=== PATIENT | male | born 1950 | race Two or more races ===

== ENCOUNTER 2023-09-22 04:09 | Inpatient (IN) | payer MEDICARE, OTHER ==
[2023-09-22] VITALS (32 sets, daily range): BP systolic 80–138; BP diastolic 44–69; TEMP 97.4–98.4; O2SAT 94–100
[~2023-09-22] VITALS: Ht 170.2 cm; Wt 64.4 kg
[~2023-09-22 04:09] MED LIST: ASPI81TA31 PO; METF-442 PO; METO100T14 PO; NIFE90TA PO; SIMV-46 PO
[2023-09-22] MEDS ORDERED: IV NORMAL SALINE 500 ML BAG IV ONE ×3 (04:30→05:30)
[2023-09-22] MEDS ORDERED: PANT20TA2 PO (04:36)
[2023-09-22] MEDS ORDERED: FOLI1TAB94 PO (04:36)
[2023-09-22] MEDS ORDERED: ATOR40TA PO (04:36)
[2023-09-22] MEDS ORDERED: APIX2.5T PO (04:36)
[2023-09-22] MEDS ORDERED: PRAM0.253 PO (04:36)
[2023-09-22] MEDS ORDERED: FLUD0.1T PO (04:36)
[2023-09-22] MEDS ORDERED: LEVO50TA8 PO (04:36)
[2023-09-22 04:47] LABS: AMMONIA 29 umol/L (11-32); CALCIUM 6.1 mg/dL (8.5-10.1); CARBON DIOXIDE 23 mmol/L (21-32); CHLORIDE 109 mmol/L (98-107); CREATININE 2.5 mg/dL (0.6-1.3); GLUCOSE 106 mg/dL (74-106); POTASSIUM 3.2 mmol/L (3.5-5.1); SODIUM SERUM 139 mmol/L (136-145); UREA NITROGEN, BLOOD 34 mg/dL (7-18)
[2023-09-22 04:52] LABS: ETHANOL < 3 MG/DL (0-10)
[2023-09-22 04:53] LABS: MAGNESIUM 1.3 mg/dL (1.8-2.4)
[2023-09-22 04:56] LABS: BASOPHILS % (AUTO) 0.9 % (0.0-2.0); EOSINOPHILS # (AUTO) 0.1 K/uL (0.0-0.7); EOSINOPHILS % (AUTO) 3.7 % (0.0-7.0); HEMATOCRIT 31.8 % (36.7-47.1); HEMOGLOBIN 10.2 g/dL (12.5-16.3); LYMPHOCYTES # (AUTO) 1.4 K/uL (0.8-4.8); LYMPHOCYTES % (AUTO) 35.4 % (20.5-51.5); MEAN CORPUSCULAR HEMOGLOBIN 30.2 uug (23.8-33.4); MEAN CORPUSCULAR HGB CONC 32 g/dL (32.5-36.3); MEAN CORPUSCULAR VOLUME 94.5 fL (73.0-96.2); MONOCYTES # (AUTO) 0.4 K/uL (0.1-1.30); MONOCYTES % (AUTO) 10.1 % (0.0-11.0); NEUTROPHILS % (AUTO) 49.9 % (38.5-71.5); PLATELET COUNT (AUTO) 123 K/uL (152-348); RED BLOOD CELL COUNT(AUTO) 3.36 MIL/uL (4.06-5.63); RED CELL DISTRIBUTION WIDTH 15.8 % (12.1-16.2); WHITE BLOOD COUNT (AUTO) 3.9 K/uL (3.6-10.2)
[2023-09-22 05:00] LABS: DIFFERENTIAL COMMENT 1
[2023-09-22 05:02] LABS: ACETAMINOPHEN 5.4 ug/mL (10-30); ALANINE AMINOTRANSFERASE 33 U/L (16-63); ALKALINE PHOSPHATASE 247 U/L (50-136); ASPARTATE AMINOTRANSFERASE 45 U/L (15-37); BILIRUBIN,DIRECT 0.2 mg/dL (0.0-0.2); BILIRUBIN,TOTAL 0.4 mg/dL (0.2-1.0); TOTAL PROTEIN, SERUM 4.3 g/dL (6.4-8.2)
[2023-09-22 05:05] LABS: ALBUMIN 1.4 g/dL (3.4-5.0); NT-PRO BNP > 3500 pg/mL (0-125)
[2023-09-22 05:06] LABS: PHOSPHOROUS 3.1 mg/dL (2.5-4.9)
[2023-09-22 05:07] LABS: THYROID STIMULATING HORMONE 17.268 mIU/mL (0.358-3.740)
[2023-09-22 05:37] LABS: ABG BASE EXCESS -5.9 mmol/L; ABG HCO3 21.3 mmol/L; ABG PCO2 48.8 mmHg (35.0-45.0); ABG PH 7.257 (7.350-7.450); ABG PO2 279.1 mmHg (75.0-100.0); ABG SITE LEFT RADIAL; ABG TOTAL HEMOGLOBIN 11.3 G/dL (13.5-18.0); COHb 0.3 % (0.5-1.5); MetHb 0.3 % (0.0-1.5); O2Hb 98.6 % (94.0-97.0)
[2023-09-22] MEDS ORDERED: levoFLOXacin 750MG/D5W 150 ML IV ONE (05:40)
[2023-09-22] MEDS ORDERED: levoFLOXacin 750 MG/D5W 150 ML PIGGYBACK IV ONE (05:45)
[2023-09-22] MEDS ORDERED: ASPIRIN 81 MG TAB.CHEW ONE (05:55)
[2023-09-22] MEDS ORDERED: ASPIRIN 81 MG TAB.CHEW PO ONE (06:00)
[2023-09-22] MEDS ORDERED: ONDANSETRON 4 MG/2 ML VIAL IV PRN (06:00)
[2023-09-22] MEDS ORDERED: CALCIUM GLUCONATE IV 1 GM in IV DEXTROSE 5% 50 ML IV ONE (06:45)
[2023-09-22] MEDS ORDERED: CALCIUM GLUCONATE 1 GM/10 ML VIAL IV ONE (06:48)
[2023-09-22] MEDS ORDERED: NOREPINEPHRINE BITARTRATE 4 MG/4 ML VIAL IV ONE (07:00)
[2023-09-22] MEDS ORDERED: NOREPINEPHRINE BITARTRATE 8 MG in IV NORMAL SALINE 242 ML IV PRN ×2 (07:00→07:15)
[2023-09-22] MEDS ORDERED: MAGNESIUM SULFATE/D5W 100 ML IV SCH ×2 (08:00→09:15)
[2023-09-22] MEDS: ASPIRIN 81 MG TAB.CHEW PO SCH (09:00)
[2023-09-22] MEDS ORDERED: FLUDROCORTISONE ACETATE 0.1 MG TABLET PO SCH (09:00)
[2023-09-22] MEDS: APIXABAN 2.5 MG TABLET PO SCH ×2 (09:00→21:00)
[2023-09-22] MEDS: LEVOTHYROXINE SODIUM 50 MCG TABLET PO SCH (10:26)
[2023-09-22] MEDS: FOLIC ACID 1 MG TABLET PO SCH (10:28)
[2023-09-22] MEDS: MAGNESIUM SULFATE/D5W 100 ML IV SCH ×2 (10:28→11:26)
[2023-09-22] MEDS: NOREPINEPHRINE BITARTRATE 8 MG in IV NORMAL SALINE 242 ML IV PRN ×2 (10:54→21:51)
[2023-09-22] MEDS: CEFEPIME HCL 1 G in IV DEXTROSE 5% 50 ML IV SCH (21:20)
[2023-09-22] MEDS: ATORVASTATIN 40 MG TABLET PO SCH (21:21)
[2023-09-22] MEDS: PRAMIPEXOLE 0.25 MG TABLET PO SCH (21:22)
[2023-09-22] MEDS: IV NORMAL SALINE 250 ML IV PRN (22:46)
[2023-09-23] VITALS (37 sets, daily range): BP systolic 89–121; BP diastolic 38–66; TEMP 98–99.1; O2SAT 95–100
[2023-09-23 05:03] LABS: BASOPHILS # (AUTO) 0.1 K/UL (0.0-0.2); EOSINOPHILS # (AUTO) 0.1 K/uL (0.0-0.7); EOSINOPHILS % (AUTO) 1.6 % (0.0-7.0); HEMATOCRIT 34.8 % (36.7-47.1); HEMOGLOBIN 11.5 g/dL (12.5-16.3); LYMPHOCYTES # (AUTO) 0.5 K/uL (0.8-4.8); MEAN CORPUSCULAR HEMOGLOBIN 30.5 uug (23.8-33.4); MEAN CORPUSCULAR HGB CONC 33 g/dL (32.5-36.3); MEAN CORPUSCULAR VOLUME 92.5 fL (73.0-96.2); MONOCYTES # (AUTO) 0.6 K/uL (0.1-1.30); MONOCYTES % (AUTO) 10.6 % (0.0-11.0); NEUTROPHILS # (AUTO) 4.5 K/uL (1.8-8.9); NEUTROPHILS % (AUTO) 78.8 % (38.5-71.5); PLATELET COUNT (AUTO) 155 K/uL (152-348); RED BLOOD CELL COUNT(AUTO) 3.76 MIL/uL (4.06-5.63); RED CELL DISTRIBUTION WIDTH 15.7 % (12.1-16.2); WHITE BLOOD COUNT (AUTO) 5.7 K/uL (3.6-10.2)
[2023-09-23 05:08] LABS: DIFFERENTIAL COMMENT 1
[2023-09-23 05:17] LABS: CALCIUM 7.7 mg/dL (8.5-10.1); CARBON DIOXIDE 28 mmol/L (21-32); CHLORIDE 101 mmol/L (98-107); CHOLESTEROL 118 mg/dL (<200); CREATININE 2.8 mg/dL (0.6-1.3); GLUCOSE 122 mg/dL (74-106); HDL CHOLESTEROL 71 mg/dL (40-60); MAGNESIUM 1.9 mg/dL (1.8-2.4); PHOSPHOROUS 3.6 mg/dL (2.5-4.9); POTASSIUM 4.4 mmol/L (3.5-5.1); SODIUM SERUM 135 mmol/L (136-145); TRIGLYCERIDES 61 MG/DL (30-150); UREA NITROGEN, BLOOD 32 mg/dL (7-18)
[2023-09-23] MEDS ORDERED: levoFLOXacin 750MG/D5W 750 MG in PREMIXED 1 EACH IV SCH (06:00)
[2023-09-23 06:29] LABS: ABG BASE EXCESS -0.1 mmol/L; ABG HCO3 27.2 mmol/L; ABG PCO2 56.3 mmHg (35.0-45.0); ABG PH 7.302 (7.350-7.450); ABG PO2 57.9 mmHg (75.0-100.0); ABG SITE LEFT BRACHIAL; ABG TOTAL HEMOGLOBIN 12.8 G/dL (13.5-18.0); COHb 0.8 % (0.5-1.5); MetHb 0.3 % (0.0-1.5); O2Hb 87.7 % (94.0-97.0); VENT MODE Mask - Venturi
[2023-09-23] MEDS: HEPARIN/D5W DRIP 500 ML IV PRN ×2 (06:41→09:39)
[2023-09-23] MEDS ORDERED: HEPARIN SODIUM,PORCINE 5,000 UNITS/ML VIAL IV ONE ×2 (06:45→20:00)
[2023-09-23] MEDS: LEVOTHYROXINE SODIUM 50 MCG TABLET PO SCH (07:02)
[2023-09-23] MEDS: PANTOPRAZOLE SODIUM 40 MG TABLET.DR PO SCH (07:02)
[2023-09-23] MEDS: NOREPINEPHRINE BITARTRATE 8 MG in IV NORMAL SALINE 242 ML IV PRN ×3 (07:21→23:34)
[2023-09-23] MEDS ORDERED: MIDODRINE HCL 2.5 MG TABLET PO SCH (08:15)
[2023-09-23] MEDS: ASPIRIN 81 MG TAB.CHEW PO SCH (09:00)
[2023-09-23] MEDS: FOLIC ACID 1 MG TABLET PO SCH (09:42)
[2023-09-23] MEDS: MIDODRINE HCL 5 MG TABLET PO SCH ×3 (09:42→21:15)
[2023-09-23 10:07] LABS: PROTEIN, BODY FLUID 2.2 G/DL
[2023-09-23 11:20] LABS: TOTAL VOLUME,BODY FLUID 1010 mL
[2023-09-23 11:23] LABS: WBC, BODY FLUID 43 /cu. mm (0-200/cu.mm)
[2023-09-23 14:30] LABS: MACROPHAGES, BODY FLUID 11; MONOCYTES,BODY FLUID 23 %; POLYNUCLEAR, BODY FLUID 17 % (0-25%)
[2023-09-23 18:54] LABS: TOTAL VOLUME,BODY FLUID 925 mL
[2023-09-23 18:55] LABS: PROTEIN, BODY FLUID 1.5 G/DL
[2023-09-23 18:56] LABS: WBC, BODY FLUID 352 /cu. mm (0-200/cu.mm)
[2023-09-23 20:22] LABS: MONOCYTES,BODY FLUID 96 %; POLYNUCLEAR, BODY FLUID 2 % (0-25%)
[2023-09-23] MEDS: CEFEPIME HCL 1 G in IV DEXTROSE 5% 50 ML IV SCH (21:14)
[2023-09-23] MEDS: ATORVASTATIN 40 MG TABLET PO SCH (21:14)
[2023-09-23] MEDS: PRAMIPEXOLE 0.25 MG TABLET PO SCH (21:15)
[2023-09-23 22:52] LABS: PH, BODY FLUID 7.5
[2023-09-24] VITALS (23 sets, daily range): BP systolic 80–113; BP diastolic 26–54; TEMP 97.3–99; O2SAT 97–100
[2023-09-24 03:08] LABS: BASOPHILS # (AUTO) 0.1 K/UL (0.0-0.2); DIFFERENTIAL COMMENT 0; EOSINOPHILS # (AUTO) 0.3 K/uL (0.0-0.7); EOSINOPHILS % (AUTO) 5.8 % (0.0-7.0); HEMATOCRIT 32.7 % (36.7-47.1); HEMOGLOBIN 10.9 g/dL (12.5-16.3); LYMPHOCYTES # (AUTO) 0.4 K/uL (0.8-4.8); LYMPHOCYTES % (AUTO) 7.8 % (20.5-51.5); MEAN CORPUSCULAR HEMOGLOBIN 30.8 uug (23.8-33.4); MEAN CORPUSCULAR HGB CONC 33 g/dL (32.5-36.3); MEAN CORPUSCULAR VOLUME 92.5 fL (73.0-96.2); MONOCYTES # (AUTO) 0.7 K/uL (0.1-1.30); NEUTROPHILS # (AUTO) 3.8 K/uL (1.8-8.9); NEUTROPHILS % (AUTO) 72.4 % (38.5-71.5); PLATELET COUNT (AUTO) 138 K/uL (152-348); RED BLOOD CELL COUNT(AUTO) 3.53 MIL/uL (4.06-5.63); RED CELL DISTRIBUTION WIDTH 15.6 % (12.1-16.2); WHITE BLOOD COUNT (AUTO) 5.2 K/uL (3.6-10.2)
[2023-09-24 03:33] LABS: CALCIUM 7.7 mg/dL (8.5-10.1); CARBON DIOXIDE 30 mmol/L (21-32); CHLORIDE 100 mmol/L (98-107); CREATININE 3.8 mg/dL (0.6-1.3); GLUCOSE 111 mg/dL (74-106); POTASSIUM 4.7 mmol/L (3.5-5.1); SODIUM SERUM 134 mmol/L (136-145); UREA NITROGEN, BLOOD 46 mg/dL (7-18)
[2023-09-24 03:37] LABS: PHOSPHOROUS 4.2 mg/dL (2.5-4.9)
[2023-09-24 05:07] LABS: HEPATITIS B SURFACE AB, QUAL Reactive (.); HEPATITIS B SURFACE AG Negative (Negative)
[2023-09-24 06:19] LABS: ABG BASE EXCESS -3.9 mmol/L; ABG HCO3 22.4 mmol/L; ABG PH 7.305 (7.350-7.450); ABG SITE LEFT BRACHIAL; ABG TOTAL HEMOGLOBIN 11.3 G/dL (13.5-18.0); COHb 0.6 % (0.5-1.5); MetHb 0.3 % (0.0-1.5); VENT MODE Nasal Cannula
[2023-09-24] MEDS: PANTOPRAZOLE SODIUM 40 MG TABLET.DR PO SCH (06:32)
[2023-09-24] MEDS: LEVOTHYROXINE SODIUM 50 MCG TABLET PO SCH (06:32)
[2023-09-24] MEDS: MIDODRINE HCL 5 MG TABLET PO SCH ×3 (06:34→22:35)
[2023-09-24] MEDS: ASPIRIN 81 MG TAB.CHEW PO SCH (09:18)
[2023-09-24] MEDS: FOLIC ACID 1 MG TABLET PO SCH (09:18)
[2023-09-24] MEDS: ACETAMINOPHEN 325 MG TABLET PO PRN (16:02)
[2023-09-24] MEDS ORDERED: ONDANSETRON 4 MG/2 ML VIAL IV PRN (19:15)
[2023-09-24] MEDS: CEFEPIME HCL 1 G in IV DEXTROSE 5% 50 ML IV SCH (20:13)
[2023-09-24] MEDS: ATORVASTATIN 40 MG TABLET PO SCH (20:13)
[2023-09-24] MEDS: PRAMIPEXOLE 0.25 MG TABLET PO SCH (20:13)
[2023-09-25] VITALS (44 sets, daily range): BP systolic 82–125; BP diastolic 40–68; TEMP 97.4–99; O2SAT 96–99
[2023-09-25] MEDS: HEPARIN/D5W DRIP 500 ML IV PRN (00:15)
[2023-09-25 05:13] LABS: BASOPHILS % (AUTO) 1.1 % (0.0-2.0); EOSINOPHILS # (AUTO) 0.3 K/uL (0.0-0.7); EOSINOPHILS % (AUTO) 6.1 % (0.0-7.0); HEMATOCRIT 32.3 % (36.7-47.1); HEMOGLOBIN 10.8 g/dL (12.5-16.3); LYMPHOCYTES # (AUTO) 0.4 K/uL (0.8-4.8); MEAN CORPUSCULAR HEMOGLOBIN 30.9 uug (23.8-33.4); MEAN CORPUSCULAR HGB CONC 33 g/dL (32.5-36.3); MEAN CORPUSCULAR VOLUME 92.8 fL (73.0-96.2); MONOCYTES # (AUTO) 0.5 K/uL (0.1-1.30); MONOCYTES % (AUTO) 10.7 % (0.0-11.0); NEUTROPHILS # (AUTO) 3.3 K/uL (1.8-8.9); NEUTROPHILS % (AUTO) 73.1 % (38.5-71.5); PLATELET COUNT (AUTO) 153 K/uL (152-348); RED BLOOD CELL COUNT(AUTO) 3.48 MIL/uL (4.06-5.63); RED CELL DISTRIBUTION WIDTH 15.8 % (12.1-16.2); WHITE BLOOD COUNT (AUTO) 4.5 K/uL (3.6-10.2)
[2023-09-25 05:18] LABS: DIFFERENTIAL COMMENT 1
[2023-09-25 05:19] LABS: CALCIUM 7.9 mg/dL (8.5-10.1); CARBON DIOXIDE 28 mmol/L (21-32); CHLORIDE 102 mmol/L (98-107); CREATININE 3.1 mg/dL (0.6-1.3); GLUCOSE 114 mg/dL (74-106); POTASSIUM 4.5 mmol/L (3.5-5.1); SODIUM SERUM 137 mmol/L (136-145); UREA NITROGEN, BLOOD 30 mg/dL (7-18)
[2023-09-25] MEDS: MIDODRINE HCL 5 MG TABLET PO SCH ×3 (05:28→20:28)
[2023-09-25] MEDS: PANTOPRAZOLE SODIUM 40 MG TABLET.DR PO SCH (06:11)
[2023-09-25] MEDS: LEVOTHYROXINE SODIUM 50 MCG TABLET PO SCH (06:16)
[2023-09-25] MEDS: ASPIRIN 81 MG TAB.CHEW PO SCH (08:14)
[2023-09-25] MEDS: FOLIC ACID 1 MG TABLET PO SCH (08:14)
[2023-09-25] MEDS: NEPRO (VANILLA) 237 ML CAN PO SCH (08:15)
[2023-09-25] MEDS ORDERED: IV NORMAL SALINE 250 ML IV ONE (10:02)
[2023-09-25] MEDS ORDERED: SWABABLE VALVE TRANSFER SET EA MC ONE (10:02)
[2023-09-25] MEDS ORDERED: IOHEXOL 350 100 ML INFUS..BTL ONE (10:02)
[2023-09-25] MEDS: CLOPIDOGREL 75 MG TABLET PO SCH (16:13)
[2023-09-25] MEDS: NOREPINEPHRINE BITARTRATE 8 MG in IV NORMAL SALINE 242 ML IV PRN (19:06)
[2023-09-25] MEDS: ATORVASTATIN 40 MG TABLET PO SCH (20:26)
[2023-09-25] MEDS: CEFEPIME HCL 1 G in IV DEXTROSE 5% 50 ML IV SCH (20:26)
[2023-09-25] MEDS: APIXABAN 2.5 MG TABLET PO SCH (20:27)
[2023-09-25] MEDS: PRAMIPEXOLE 0.25 MG TABLET PO SCH (20:28)
[2023-09-26] VITALS (48 sets, daily range): BP systolic 96–125; BP diastolic 47–73; TEMP 97.6–97.8; O2SAT 97–100
[2023-09-26 04:58] LABS: BASOPHILS # (AUTO) 0.1 K/UL (0.0-0.2); BASOPHILS % (AUTO) 1.3 % (0.0-2.0); DIFFERENTIAL COMMENT 0; EOSINOPHILS # (AUTO) 0.2 K/uL (0.0-0.7); HEMATOCRIT 33.6 % (36.7-47.1); HEMOGLOBIN 11.1 g/dL (12.5-16.3); LYMPHOCYTES # (AUTO) 0.4 K/uL (0.8-4.8); LYMPHOCYTES % (AUTO) 9.2 % (20.5-51.5); MEAN CORPUSCULAR HEMOGLOBIN 30.8 uug (23.8-33.4); MEAN CORPUSCULAR HGB CONC 33 g/dL (32.5-36.3); MEAN CORPUSCULAR VOLUME 92.9 fL (73.0-96.2); MONOCYTES # (AUTO) 0.6 K/uL (0.1-1.30); MONOCYTES % (AUTO) 13.6 % (0.0-11.0); NEUTROPHILS # (AUTO) 3.1 K/uL (1.8-8.9); NEUTROPHILS % (AUTO) 70.9 % (38.5-71.5); PLATELET COUNT (AUTO) 160 K/uL (152-348); RED BLOOD CELL COUNT(AUTO) 3.62 MIL/uL (4.06-5.63); RED CELL DISTRIBUTION WIDTH 15.9 % (12.1-16.2); WHITE BLOOD COUNT (AUTO) 4.3 K/uL (3.6-10.2)
[2023-09-26 05:28] LABS: CALCIUM 7.6 mg/dL (8.5-10.1); CARBON DIOXIDE 29 mmol/L (21-32); CHLORIDE 98 mmol/L (98-107); CREATININE 2.8 mg/dL (0.6-1.3); GLUCOSE 149 mg/dL (74-106); POTASSIUM 4.5 mmol/L (3.5-5.1); SODIUM SERUM 133 mmol/L (136-145); UREA NITROGEN, BLOOD 24 mg/dL (7-18)
[2023-09-26] MEDS: MIDODRINE HCL 5 MG TABLET PO SCH ×3 (05:43→20:05)
[2023-09-26] MEDS: LEVOTHYROXINE SODIUM 50 MCG TABLET PO SCH (05:44)
[2023-09-26] MEDS: PANTOPRAZOLE SODIUM 40 MG TABLET.DR PO SCH (05:44)
[2023-09-26 08:09] LABS: ABG BASE EXCESS 1.6 mmol/L; ABG PCO2 59.7 mmHg (35.0-45.0); ABG PH 7.305 (7.350-7.450); ABG PO2 88.3 mmHg (75.0-100.0); ABG SITE LEFT BRACHIAL; COHb 0.7 % (0.5-1.5); MetHb 0.3 % (0.0-1.5); O2Hb 95.4 % (94.0-97.0); VENT MODE Nasal Cannula
[2023-09-26] MEDS: FOLIC ACID 1 MG TABLET PO SCH (08:18)
[2023-09-26] MEDS: CLOPIDOGREL 75 MG TABLET PO SCH (08:18)
[2023-09-26] MEDS: APIXABAN 2.5 MG TABLET PO SCH (08:19)
[2023-09-26] MEDS: NEPRO (VANILLA) 237 ML CAN PO SCH (08:25)
[2023-09-26] MEDS: ALBUMIN HUMAN 25% 100 ML IV SCH ×3 (11:44→23:24)
[2023-09-26] MEDS: NOREPINEPHRINE BITARTRATE 8 MG in IV NORMAL SALINE 242 ML IV PRN (11:59)
[2023-09-26] MEDS: ACETAMINOPHEN 325 MG TABLET PO PRN (15:33)
[2023-09-26] MEDS: IV NORMAL SALINE 250 ML IV PRN (16:23)
[2023-09-26] MEDS: CEFEPIME HCL 1 G in IV DEXTROSE 5% 50 ML IV SCH (20:03)
[2023-09-26] MEDS: ATORVASTATIN 40 MG TABLET PO SCH (20:04)
[2023-09-26] MEDS: PRAMIPEXOLE 0.25 MG TABLET PO SCH (20:04)
[2023-09-27] VITALS (66 sets, daily range): BP systolic 77–150; BP diastolic 23–95; TEMP 97–98; O2SAT 35–100
[2023-09-27 05:07] LABS: BASOPHILS % (AUTO) 1.1 % (0.0-2.0); EOSINOPHILS # (AUTO) 0.3 K/uL (0.0-0.7); EOSINOPHILS % (AUTO) 6.4 % (0.0-7.0); HEMATOCRIT 32.9 % (36.7-47.1); HEMOGLOBIN 10.8 g/dL (12.5-16.3); LYMPHOCYTES # (AUTO) 0.5 K/uL (0.8-4.8); LYMPHOCYTES % (AUTO) 10.9 % (20.5-51.5); MEAN CORPUSCULAR HEMOGLOBIN 30.5 uug (23.8-33.4); MEAN CORPUSCULAR HGB CONC 33 g/dL (32.5-36.3); MEAN CORPUSCULAR VOLUME 93.4 fL (73.0-96.2); MONOCYTES # (AUTO) 0.6 K/uL (0.1-1.30); MONOCYTES % (AUTO) 13.1 % (0.0-11.0); NEUTROPHILS # (AUTO) 3.2 K/uL (1.8-8.9); NEUTROPHILS % (AUTO) 68.5 % (38.5-71.5); PLATELET COUNT (AUTO) 149 K/uL (152-348); RED BLOOD CELL COUNT(AUTO) 3.52 MIL/uL (4.06-5.63); WHITE BLOOD COUNT (AUTO) 4.7 K/uL (3.6-10.2)
[2023-09-27 05:13] LABS: DIFFERENTIAL COMMENT 1
[2023-09-27 05:15] LABS: CALCIUM 8.4 mg/dL (8.5-10.1); CARBON DIOXIDE 30 mmol/L (21-32); CHLORIDE 98 mmol/L (98-107); CREATININE 3.7 mg/dL (0.6-1.3); GLUCOSE 149 mg/dL (74-106); POTASSIUM 4.5 mmol/L (3.5-5.1); SODIUM SERUM 133 mmol/L (136-145); UREA NITROGEN, BLOOD 34 mg/dL (7-18)
[2023-09-27] MEDS: ALBUMIN HUMAN 25% 100 ML IV SCH (05:24)
[2023-09-27] MEDS: MIDODRINE HCL 5 MG TABLET PO SCH ×3 (05:26→22:00)
[2023-09-27] MEDS: PANTOPRAZOLE SODIUM 40 MG TABLET.DR PO SCH (06:38)
[2023-09-27] MEDS: LEVOTHYROXINE SODIUM 50 MCG TABLET PO SCH (06:39)
[2023-09-27] MEDS: NOREPINEPHRINE BITARTRATE 8 MG in IV NORMAL SALINE 242 ML IV PRN (06:43)
[2023-09-27] MEDS: PROPOFOL 100 ML IV PRN ×2 (08:00→15:46)
[2023-09-27] MEDS: CLOPIDOGREL 75 MG TABLET PO SCH (09:00)
[2023-09-27] MEDS: FOLIC ACID 1 MG TABLET PO SCH (09:00)
[2023-09-27] MEDS: NEPRO (VANILLA) 237 ML CAN PO SCH (09:00)
[2023-09-27 09:23] LABS: ABG BASE EXCESS 1.4 mmol/L; ABG HCO3 24.1 mmol/L; ABG PCO2 31.8 mmHg (35.0-45.0); ABG PH 7.497 (7.350-7.450); ABG PO2 81.3 mmHg (75.0-100.0); ABG SITE LEFT RADIAL; ABG TOTAL HEMOGLOBIN 11.6 G/dL (13.5-18.0); COHb 0.6 % (0.5-1.5); MetHb 0.3 % (0.0-1.5); VENT MODE VENT - A/C18; VT, ABG 450 mL
[2023-09-27] MEDS: CEFEPIME HCL 1 G in IV DEXTROSE 5% 50 ML IV SCH (20:33)
[2023-09-27] MEDS: PRAMIPEXOLE 0.25 MG TABLET PO SCH (20:34)
[2023-09-27] MEDS: ATORVASTATIN 40 MG TABLET PO SCH (20:34)
[2023-09-28] VITALS (65 sets, daily range): BP systolic 81–123; BP diastolic 4–58; TEMP 97.5–99.8; O2SAT 30–35
[2023-09-28] MEDS: PROPOFOL 100 ML IV PRN ×3 (00:31→22:08)
[2023-09-28] MEDS ORDERED: NOREPINEPHRINE BITARTRATE 4 MG/4 ML VIAL IV ONE (03:59)
[2023-09-28] MEDS: NOREPINEPHRINE BITARTRATE 8 MG in IV NORMAL SALINE 242 ML IV PRN (04:14)
[2023-09-28 05:01] LABS: BASOPHILS # (AUTO) 0.1 K/UL (0.0-0.2); BASOPHILS % (AUTO) 1.1 % (0.0-2.0); EOSINOPHILS # (AUTO) 0.3 K/uL (0.0-0.7); HEMATOCRIT 32.4 % (36.7-47.1); HEMOGLOBIN 10.8 g/dL (12.5-16.3); LYMPHOCYTES # (AUTO) 0.6 K/uL (0.8-4.8); MEAN CORPUSCULAR HEMOGLOBIN 30.5 uug (23.8-33.4); MEAN CORPUSCULAR HGB CONC 33 g/dL (32.5-36.3); MEAN CORPUSCULAR VOLUME 91.4 fL (73.0-96.2); MONOCYTES # (AUTO) 0.4 K/uL (0.1-1.30); MONOCYTES % (AUTO) 8.5 % (0.0-11.0); NEUTROPHILS # (AUTO) 3.9 K/uL (1.8-8.9); NEUTROPHILS % (AUTO) 74.4 % (38.5-71.5); PLATELET COUNT (AUTO) 118 K/uL (152-348); RED BLOOD CELL COUNT(AUTO) 3.55 MIL/uL (4.06-5.63); RED CELL DISTRIBUTION WIDTH 15.8 % (12.1-16.2); WHITE BLOOD COUNT (AUTO) 5.3 K/uL (3.6-10.2)
[2023-09-28 05:02] LABS: DIFFERENTIAL COMMENT 1
[2023-09-28 05:15] LABS: CALCIUM 8.5 mg/dL (8.5-10.1); CARBON DIOXIDE 26 mmol/L (21-32); CHLORIDE 98 mmol/L (98-107); CREATININE 3.5 mg/dL (0.6-1.3); GLUCOSE 89 mg/dL (74-106); POTASSIUM 3.5 mmol/L (3.5-5.1); SODIUM SERUM 134 mmol/L (136-145); UREA NITROGEN, BLOOD 27 mg/dL (7-18)
[2023-09-28 05:19] LABS: MAGNESIUM 1.6 mg/dL (1.8-2.4); PHOSPHOROUS 1.5 mg/dL (2.5-4.9)
[2023-09-28] MEDS: MIDODRINE HCL 5 MG TABLET PO SCH ×3 (05:56→21:23)
[2023-09-28 06:08] LABS: ABG HCO3 22.3 mmol/L; ABG PCO2 20.5 mmHg (35.0-45.0); ABG PH 7.655 (7.350-7.450); ABG PO2 66.5 mmHg (75.0-100.0); ABG SITE LEFT BRACHIAL; ABG TOTAL HEMOGLOBIN 11.3 G/dL (13.5-18.0); COHb 0.7 % (0.5-1.5); MetHb 0.3 % (0.0-1.5); O2Hb 94.8 % (94.0-97.0); VENT MODE VENT - A/C; VT, ABG 450 mL
[2023-09-28] MEDS: PANTOPRAZOLE SODIUM 40 MG TABLET.DR PO SCH (06:09)
[2023-09-28] MEDS: LEVOTHYROXINE SODIUM 50 MCG TABLET PO SCH (06:10)
[2023-09-28] MEDS: NEPRO (VANILLA) 237 ML CAN PO SCH (09:00)
[2023-09-28] MEDS ORDERED: MAGNESIUM SULFATE/D5W 100 ML IV SCH (09:45)
[2023-09-28] MEDS: CLOPIDOGREL 75 MG TABLET PO SCH (10:23)
[2023-09-28] MEDS: FOLIC ACID 1 MG TABLET PO SCH (10:23)
[2023-09-28] MEDS: NEPRO 1000 ML NG PRN (12:12)
[2023-09-28] MEDS: ACETAMINOPHEN 325 MG TABLET PO PRN (15:08)
[2023-09-28] MEDS: CEFEPIME HCL 1 G in IV DEXTROSE 5% 50 ML IV SCH (21:22)
[2023-09-28] MEDS: ATORVASTATIN 40 MG TABLET PO SCH (21:23)
[2023-09-28] MEDS: PRAMIPEXOLE 0.25 MG TABLET PO SCH (21:28)
[2023-09-29] VITALS (48 sets, daily range): BP systolic 67–124; BP diastolic 37–55; TEMP 97.8–98.9; O2SAT 30
[2023-09-29] MEDS: PROPOFOL 100 ML IV PRN ×3 (04:32→21:50)
[2023-09-29] MEDS: NOREPINEPHRINE BITARTRATE 8 MG in IV NORMAL SALINE 242 ML IV PRN (05:04)
[2023-09-29 05:09] LABS: BASOPHILS # (AUTO) 0.1 K/UL (0.0-0.2); BASOPHILS % (AUTO) 0.8 % (0.0-2.0); EOSINOPHILS # (AUTO) 0.4 K/uL (0.0-0.7); EOSINOPHILS % (AUTO) 5.2 % (0.0-7.0); HEMATOCRIT 32.5 % (36.7-47.1); HEMOGLOBIN 10.8 g/dL (12.5-16.3); LYMPHOCYTES # (AUTO) 0.5 K/uL (0.8-4.8); MEAN CORPUSCULAR HEMOGLOBIN 30.4 uug (23.8-33.4); MEAN CORPUSCULAR HGB CONC 33 g/dL (32.5-36.3); MEAN CORPUSCULAR VOLUME 91.3 fL (73.0-96.2); MONOCYTES # (AUTO) 0.5 K/uL (0.1-1.30); MONOCYTES % (AUTO) 6.9 % (0.0-11.0); NEUTROPHILS # (AUTO) 5.9 K/uL (1.8-8.9); NEUTROPHILS % (AUTO) 80.1 % (38.5-71.5); PLATELET COUNT (AUTO) 110 K/uL (152-348); RED BLOOD CELL COUNT(AUTO) 3.56 MIL/uL (4.06-5.63); WHITE BLOOD COUNT (AUTO) 7.3 K/uL (3.6-10.2)
[2023-09-29] MEDS: MIDODRINE HCL 5 MG TABLET PO SCH ×3 (05:14→21:19)
[2023-09-29 05:15] LABS: DIFFERENTIAL COMMENT 1
[2023-09-29 05:22] LABS: CALCIUM 8.1 mg/dL (8.5-10.1); CARBON DIOXIDE 28 mmol/L (21-32); CHLORIDE 99 mmol/L (98-107); GLUCOSE 169 mg/dL (74-106); PHOSPHOROUS 2.5 mg/dL (2.5-4.9); POTASSIUM 3.9 mmol/L (3.5-5.1); SODIUM SERUM 133 mmol/L (136-145); UREA NITROGEN, BLOOD 22 mg/dL (7-18)
[2023-09-29] MEDS: PANTOPRAZOLE SODIUM 40 MG TABLET.DR PO SCH (06:05)
[2023-09-29] MEDS: LEVOTHYROXINE SODIUM 50 MCG TABLET PO SCH (06:05)
[2023-09-29 06:08] LABS: ABG BASE EXCESS 3.2 mmol/L; ABG PCO2 37.9 mmHg (35.0-45.0); ABG SITE LEFT BRACHIAL; ABG TOTAL HEMOGLOBIN 11.9 G/dL (13.5-18.0); COHb 0.7 % (0.5-1.5); MetHb 0.3 % (0.0-1.5); O2Hb 96.8 % (94.0-97.0); VENT MODE VENT - A/C; VT, ABG 450 mL
[2023-09-29] MEDS: FOLIC ACID 1 MG TABLET PO SCH (08:40)
[2023-09-29] MEDS: CLOPIDOGREL 75 MG TABLET PO SCH (08:40)
[2023-09-29 08:46] LABS: ALBUMIN 1.9 g/dL (3.4-5.0); BILIRUBIN,DIRECT 1.3 mg/dL (0.0-0.2); BILIRUBIN,TOTAL 1.9 mg/dL (0.2-1.0); TOTAL PROTEIN, SERUM 5.1 g/dL (6.4-8.2)
[2023-09-29] MEDS: ATORVASTATIN 40 MG TABLET PO SCH (21:19)
[2023-09-29] MEDS: PRAMIPEXOLE 0.25 MG TABLET PO SCH (21:20)
[2023-09-30] VITALS (36 sets, daily range): BP systolic 83–146; BP diastolic 42–70; TEMP 97.4–98.5; O2SAT 30
[2023-09-30] MEDS: NOREPINEPHRINE BITARTRATE 8 MG in IV NORMAL SALINE 242 ML IV PRN ×3 (04:15→22:47)
[2023-09-30 04:54] LABS: BASOPHILS # (AUTO) 0.1 K/UL (0.0-0.2); BASOPHILS % (AUTO) 1.4 % (0.0-2.0); EOSINOPHILS # (AUTO) 0.3 K/uL (0.0-0.7); EOSINOPHILS % (AUTO) 5.2 % (0.0-7.0); HEMATOCRIT 36.8 % (36.7-47.1); HEMOGLOBIN 12.1 g/dL (12.5-16.3); LYMPHOCYTES # (AUTO) 0.4 K/uL (0.8-4.8); LYMPHOCYTES % (AUTO) 8.4 % (20.5-51.5); MEAN CORPUSCULAR HEMOGLOBIN 30.2 uug (23.8-33.4); MEAN CORPUSCULAR HGB CONC 33 g/dL (32.5-36.3); MEAN CORPUSCULAR VOLUME 91.8 fL (73.0-96.2); MONOCYTES # (AUTO) 0.3 K/uL (0.1-1.30); MONOCYTES % (AUTO) 6.1 % (0.0-11.0); NEUTROPHILS # (AUTO) 4.2 K/uL (1.8-8.9); NEUTROPHILS % (AUTO) 78.9 % (38.5-71.5); PLATELET COUNT (AUTO) 116 K/uL (152-348); RED CELL DISTRIBUTION WIDTH 15.5 % (12.1-16.2); WHITE BLOOD COUNT (AUTO) 5.3 K/uL (3.6-10.2)
[2023-09-30 05:05] LABS: CALCIUM 8.6 mg/dL (8.5-10.1); CARBON DIOXIDE 30 mmol/L (21-32); CHLORIDE 97 mmol/L (98-107); CREATININE 3.1 mg/dL (0.6-1.3); GLUCOSE 225 mg/dL (74-106); MAGNESIUM 1.8 mg/dL (1.8-2.4); PHOSPHOROUS 2.3 mg/dL (2.5-4.9); POTASSIUM 3.8 mmol/L (3.5-5.1); SODIUM SERUM 134 mmol/L (136-145); UREA NITROGEN, BLOOD 24 mg/dL (7-18)
[2023-09-30 05:25] LABS: DIFFERENTIAL COMMENT 1
[2023-09-30 06:35] LABS: ABG BASE EXCESS 5.5 mmol/L; ABG HCO3 27.9 mmol/L; ABG PCO2 33.9 mmHg (35.0-45.0); ABG PH 7.534 (7.350-7.450); ABG PO2 87.1 mmHg (75.0-100.0); ABG SITE LEFT BRACHIAL; ABG TOTAL HEMOGLOBIN 13.1 G/dL (13.5-18.0); COHb 1.1 % (0.5-1.5); MetHb 0.3 % (0.0-1.5); O2Hb 95.8 % (94.0-97.0); VENT MODE VENT - A/C; VT, ABG 450 mL
[2023-09-30] MEDS: LEVOTHYROXINE SODIUM 50 MCG TABLET PO SCH (06:51)
[2023-09-30] MEDS: PANTOPRAZOLE SODIUM 40 MG TABLET.DR PO SCH (06:52)
[2023-09-30] MEDS: MIDODRINE HCL 5 MG TABLET PO SCH ×3 (06:52→21:12)
[2023-09-30 08:37] LABS: ALBUMIN 1.8 g/dL (3.4-5.0); BILIRUBIN,DIRECT 0.5 mg/dL (0.0-0.2); TOTAL PROTEIN, SERUM 5.5 g/dL (6.4-8.2)
[2023-09-30] MEDS: FOLIC ACID 1 MG TABLET PO SCH (09:18)
[2023-09-30] MEDS: CLOPIDOGREL 75 MG TABLET PO SCH (09:18)
[2023-09-30] MEDS: PROPOFOL 100 ML IV PRN ×2 (09:47→22:47)
[2023-09-30] MEDS: ATORVASTATIN 40 MG TABLET PO SCH (21:12)
[2023-09-30] MEDS: PRAMIPEXOLE 0.25 MG TABLET PO SCH (21:14)
[2023-10-01] VITALS (36 sets, daily range): BP systolic 90–145; BP diastolic 37–69; TEMP 97.8–98.5; O2SAT 30–100
[2023-10-01 04:59] LABS: BASOPHILS # (AUTO) 0.1 K/UL (0.0-0.2); BASOPHILS % (AUTO) 0.8 % (0.0-2.0); EOSINOPHILS # (AUTO) 0.5 K/uL (0.0-0.7); EOSINOPHILS % (AUTO) 7.1 % (0.0-7.0); HEMATOCRIT 35.9 % (36.7-47.1); LYMPHOCYTES # (AUTO) 0.6 K/uL (0.8-4.8); LYMPHOCYTES % (AUTO) 7.5 % (20.5-51.5); MEAN CORPUSCULAR HEMOGLOBIN 30.7 uug (23.8-33.4); MEAN CORPUSCULAR HGB CONC 34 g/dL (32.5-36.3); MEAN CORPUSCULAR VOLUME 91.6 fL (73.0-96.2); MONOCYTES # (AUTO) 0.7 K/uL (0.1-1.30); MONOCYTES % (AUTO) 8.9 % (0.0-11.0); NEUTROPHILS # (AUTO) 5.6 K/uL (1.8-8.9); NEUTROPHILS % (AUTO) 75.7 % (38.5-71.5); PLATELET COUNT (AUTO) 130 K/uL (152-348); RED BLOOD CELL COUNT(AUTO) 3.92 MIL/uL (4.06-5.63); RED CELL DISTRIBUTION WIDTH 15.9 % (12.1-16.2); WHITE BLOOD COUNT (AUTO) 7.4 K/uL (3.6-10.2)
[2023-10-01 05:03] LABS: DIFFERENTIAL COMMENT 1
[2023-10-01 05:13] LABS: ALANINE AMINOTRANSFERASE 37 U/L (16-63); ALBUMIN 1.7 g/dL (3.4-5.0); ALKALINE PHOSPHATASE 509 U/L (50-136); ASPARTATE AMINOTRANSFERASE 75 U/L (15-37); BILIRUBIN,DIRECT 0.6 mg/dL (0.0-0.2); CALCIUM 8.9 mg/dL (8.5-10.1); CARBON DIOXIDE 31 mmol/L (21-32); CHLORIDE 97 mmol/L (98-107); CREATININE 3.4 mg/dL (0.6-1.3); GLUCOSE 282 mg/dL (74-106); PHOSPHOROUS 2.4 mg/dL (2.5-4.9); POTASSIUM 4.2 mmol/L (3.5-5.1); SODIUM SERUM 135 mmol/L (136-145); TOTAL PROTEIN, SERUM 5.9 g/dL (6.4-8.2); UREA NITROGEN, BLOOD 28 mg/dL (7-18)
[2023-10-01 06:08] LABS: ABG BASE EXCESS 9.2 mmol/L; ABG HCO3 32.6 mmol/L; ABG PCO2 39.4 mmHg (35.0-45.0); ABG PH 7.535 (7.350-7.450); ABG SITE LEFT BRACHIAL; ABG TOTAL HEMOGLOBIN 13.1 G/dL (13.5-18.0); MetHb 0.3 % (0.0-1.5); O2Hb 95.3 % (94.0-97.0); VT, ABG 450 mL
[2023-10-01] MEDS: MIDODRINE HCL 5 MG TABLET PO SCH ×3 (06:27→21:25)
[2023-10-01] MEDS: LEVOTHYROXINE SODIUM 50 MCG TABLET PO SCH (06:27)
[2023-10-01] MEDS: PANTOPRAZOLE SODIUM 40 MG TABLET.DR PO SCH (06:28)
[2023-10-01] MEDS ORDERED: FOLIC ACID 1 MG TABLET ONE (08:16)
[2023-10-01] MEDS ORDERED: CLOPIDOGREL 75 MG TABLET ONE (08:16)
[2023-10-01] MEDS: FOLIC ACID 1 MG TABLET PO SCH (08:19)
[2023-10-01] MEDS: CLOPIDOGREL 75 MG TABLET PO SCH (08:19)
[2023-10-01] MEDS: NOREPINEPHRINE BITARTRATE 8 MG in IV NORMAL SALINE 242 ML IV PRN ×2 (08:22→22:47)
[2023-10-01] MEDS ORDERED: PROPOFOL 100 ML ONE (10:41)
[2023-10-01] MEDS: PROPOFOL 100 ML IV PRN (10:44)
[2023-10-01] MEDS ORDERED: MIDODRINE HCL 5 MG TABLET ONE ×2 (14:35→21:21)
[2023-10-01] MEDS ORDERED: ATORVASTATIN 20 MG TABLET ONE (21:21)
[2023-10-01] MEDS: PRAMIPEXOLE 0.25 MG TABLET PO SCH (21:25)
[2023-10-01] MEDS: ATORVASTATIN 40 MG TABLET PO SCH (21:27)
[2023-10-02] VITALS (66 sets, daily range): BP systolic 82–133; BP diastolic 29–67; TEMP 97.8–99.8; O2SAT 99–100
[2023-10-02 05:36] LABS: BASOPHILS # (AUTO) 0.1 K/UL (0.0-0.2); BASOPHILS % (AUTO) 1.2 % (0.0-2.0); EOSINOPHILS # (AUTO) 0.3 K/uL (0.0-0.7); EOSINOPHILS % (AUTO) 3.8 % (0.0-7.0); HEMATOCRIT 35.2 % (36.7-47.1); HEMOGLOBIN 11.6 g/dL (12.5-16.3); LYMPHOCYTES # (AUTO) 0.6 K/uL (0.8-4.8); LYMPHOCYTES % (AUTO) 8.6 % (20.5-51.5); MEAN CORPUSCULAR HEMOGLOBIN 30.2 uug (23.8-33.4); MEAN CORPUSCULAR HGB CONC 33 g/dL (32.5-36.3); MEAN CORPUSCULAR VOLUME 91.7 fL (73.0-96.2); MONOCYTES # (AUTO) 0.8 K/uL (0.1-1.30); MONOCYTES % (AUTO) 11.1 % (0.0-11.0); NEUTROPHILS # (AUTO) 5.5 K/uL (1.8-8.9); NEUTROPHILS % (AUTO) 75.3 % (38.5-71.5); PLATELET COUNT (AUTO) 132 K/uL (152-348); RED BLOOD CELL COUNT(AUTO) 3.84 MIL/uL (4.06-5.63); RED CELL DISTRIBUTION WIDTH 16.2 % (12.1-16.2); WHITE BLOOD COUNT (AUTO) 7.3 K/uL (3.6-10.2)
[2023-10-02 05:37] LABS: DIFFERENTIAL COMMENT 1
[2023-10-02 05:52] LABS: CALCIUM 8.7 mg/dL (8.5-10.1); CARBON DIOXIDE 31 mmol/L (21-32); CHLORIDE 99 mmol/L (98-107); CREATININE 3.9 mg/dL (0.6-1.3); GLUCOSE 212 mg/dL (74-106); PHOSPHOROUS 2.2 mg/dL (2.5-4.9); POTASSIUM 3.8 mmol/L (3.5-5.1); SODIUM SERUM 137 mmol/L (136-145); TRIGLYCERIDES 92 MG/DL (30-150); UREA NITROGEN, BLOOD 40 mg/dL (7-18)
[2023-10-02 06:02] LABS: ABG BASE EXCESS 7.4 mmol/L; ABG HCO3 28.9 mmol/L; ABG PCO2 30.6 mmHg (35.0-45.0); ABG PH 7.593 (7.350-7.450); ABG PO2 95.8 mmHg (75.0-100.0); ABG SITE LEFT BRACHIAL; ABG TOTAL HEMOGLOBIN 11.7 G/dL (13.5-18.0); COHb 0.9 % (0.5-1.5); MetHb 0.3 % (0.0-1.5); O2Hb 96.4 % (94.0-97.0); VENT MODE VENT - A/C; VT, ABG 450 mL
[2023-10-02] MEDS ORDERED: PANTOPRAZOLE SODIUM 40 MG VIAL ONE (06:25)
[2023-10-02] MEDS ORDERED: LEVOTHYROXINE SODIUM 50 MCG TABLET ONE (06:25)
[2023-10-02] MEDS ORDERED: MIDODRINE HCL 5 MG TABLET ONE ×2 (06:26→14:53)
[2023-10-02] MEDS: MIDODRINE HCL 5 MG TABLET PO SCH ×3 (06:28→21:42)
[2023-10-02] MEDS: LEVOTHYROXINE SODIUM 50 MCG TABLET PO SCH (06:28)
[2023-10-02] MEDS ORDERED: PANTOPRAZOLE SODIUM 40 MG TABLET.DR PO ONE (06:30)
[2023-10-02] MEDS: PANTOPRAZOLE SODIUM 40 MG TABLET.DR PO SCH (06:30)
[2023-10-02] MEDS ORDERED: CLOPIDOGREL 75 MG TABLET ONE (07:47)
[2023-10-02] MEDS ORDERED: ACETAMINOPHEN 325 MG TABLET ONE (07:48)
[2023-10-02] MEDS ORDERED: FOLIC ACID 1 MG TABLET ONE (07:48)
[2023-10-02] MEDS: FOLIC ACID 1 MG TABLET PO SCH (08:00)
[2023-10-02] MEDS: ACETAMINOPHEN 325 MG TABLET PO PRN (08:01)
[2023-10-02] MEDS: CLOPIDOGREL 75 MG TABLET PO SCH (08:01)
[2023-10-02] MEDS ORDERED: PROPOFOL 100 ML ONE (09:32)
[2023-10-02] MEDS: PROPOFOL 100 ML IV PRN (09:36)
[2023-10-02] MEDS ORDERED: NEUTRA PHOS PACKET PO ONE (16:00)
[2023-10-02] MEDS: NOREPINEPHRINE BITARTRATE 8 MG in IV NORMAL SALINE 242 ML IV PRN (18:48)
[2023-10-02] MEDS: ATORVASTATIN 40 MG TABLET PO SCH (20:42)
[2023-10-02] MEDS: PRAMIPEXOLE 0.25 MG TABLET PO SCH (20:42)
[2023-10-03] VITALS (60 sets, daily range): BP systolic 78–134; BP diastolic 37–66; TEMP 97.8–99.8; O2SAT 99–100
[2023-10-03] MEDS: PROPOFOL 100 ML IV PRN ×2 (00:18→13:11)
[2023-10-03] MEDS: IV NORMAL SALINE 250 ML IV PRN (00:22)
[2023-10-03 04:54] LABS: BASOPHILS # (AUTO) 0.1 K/UL (0.0-0.2); HEMOGLOBIN 10.5 g/dL (12.5-16.3); MEAN CORPUSCULAR VOLUME 91.9 fL (73.0-96.2); PLATELET COUNT (AUTO) 138 K/uL (152-348); RED CELL DISTRIBUTION WIDTH 16.2 % (12.1-16.2); WHITE BLOOD COUNT (AUTO) 7.6 K/uL (3.6-10.2)
[2023-10-03 04:58] LABS: BASOPHILS % (AUTO) 1.2 % (0.0-2.0); DIFFERENTIAL COMMENT 0; EOSINOPHILS # (AUTO) 0.8 K/uL (0.0-0.7); EOSINOPHILS % (AUTO) 9.9 % (0.0-7.0); HEMATOCRIT 31.3 % (36.7-47.1); LYMPHOCYTES # (AUTO) 0.6 K/uL (0.8-4.8); LYMPHOCYTES % (AUTO) 7.3 % (20.5-51.5); MEAN CORPUSCULAR HEMOGLOBIN 30.8 uug (23.8-33.4); MEAN CORPUSCULAR HGB CONC 34 g/dL (32.5-36.3); MONOCYTES # (AUTO) 0.8 K/uL (0.1-1.30); MONOCYTES % (AUTO) 9.9 % (0.0-11.0); NEUTROPHILS # (AUTO) 5.5 K/uL (1.8-8.9); NEUTROPHILS % (AUTO) 71.7 % (38.5-71.5); RED BLOOD CELL COUNT(AUTO) 3.41 MIL/uL (4.06-5.63)
[2023-10-03 05:07] LABS: ALANINE AMINOTRANSFERASE 59 U/L (16-63); ALKALINE PHOSPHATASE 435 U/L (50-136); ASPARTATE AMINOTRANSFERASE 161 U/L (15-37); BILIRUBIN,TOTAL 1.1 mg/dL (0.2-1.0); CALCIUM 8.3 mg/dL (8.5-10.1); CARBON DIOXIDE 33 mmol/L (21-32); CHLORIDE 100 mmol/L (98-107); CREATININE 3.5 mg/dL (0.6-1.3); GLUCOSE 218 mg/dL (74-106); MAGNESIUM 2.2 mg/dL (1.8-2.4); POTASSIUM 3.5 mmol/L (3.5-5.1); SODIUM SERUM 138 mmol/L (136-145); TOTAL PROTEIN, SERUM 5.4 g/dL (6.4-8.2); UREA NITROGEN, BLOOD 40 mg/dL (7-18)
[2023-10-03 05:19] LABS: ALBUMIN 1.4 g/dL (3.4-5.0)
[2023-10-03] MEDS: PANTOPRAZOLE SODIUM 40 MG TABLET.DR PO SCH (06:03)
[2023-10-03] MEDS: MIDODRINE HCL 5 MG TABLET PO SCH ×3 (06:03→21:10)
[2023-10-03] MEDS: LEVOTHYROXINE SODIUM 50 MCG TABLET PO SCH (06:03)
[2023-10-03 08:33] LABS: ABG BASE EXCESS 7.6 mmol/L; ABG HCO3 31.2 mmol/L; ABG PCO2 39.7 mmHg (35.0-45.0); ABG PH 7.513 (7.350-7.450); ABG PO2 87.7 mmHg (75.0-100.0); ABG SITE LEFT BRACHIAL; ABG TOTAL HEMOGLOBIN 15.1 G/dL (13.5-18.0); COHb 1.7 % (0.5-1.5); MetHb 0.3 % (0.0-1.5); O2Hb 94.7 % (94.0-97.0); VENT MODE VENT - A/C; VT, ABG 400 mL
[2023-10-03] MEDS: NEPRO 1000 ML NG PRN (08:43)
[2023-10-03] MEDS: CLOPIDOGREL 75 MG TABLET PO SCH (08:44)
[2023-10-03] MEDS: FOLIC ACID 1 MG TABLET PO SCH (08:44)
[2023-10-03] MEDS: ATORVASTATIN 40 MG TABLET PO SCH (21:10)
[2023-10-03] MEDS: PRAMIPEXOLE 0.25 MG TABLET PO SCH (21:10)
[2023-10-03] MEDS: ACETAMINOPHEN 325 MG TABLET PO PRN (23:58)
[2023-10-04] VITALS (71 sets, daily range): BP systolic 44–135; BP diastolic 24–81; TEMP 98–102; O2SAT 98–100
[2023-10-04] MEDS: PROPOFOL 100 ML IV PRN ×2 (00:31→13:26)
[2023-10-04 04:47] LABS: BASOPHILS # (AUTO) 0.2 K/UL (0.0-0.2); BASOPHILS % (AUTO) 1.5 % (0.0-2.0); EOSINOPHILS # (AUTO) 0.2 K/uL (0.0-0.7); EOSINOPHILS % (AUTO) 1.6 % (0.0-7.0); HEMATOCRIT 33.3 % (36.7-47.1); LYMPHOCYTES # (AUTO) 0.5 K/uL (0.8-4.8); LYMPHOCYTES % (AUTO) 4.6 % (20.5-51.5); MEAN CORPUSCULAR HEMOGLOBIN 30.6 uug (23.8-33.4); MEAN CORPUSCULAR HGB CONC 33 g/dL (32.5-36.3); MEAN CORPUSCULAR VOLUME 92.5 fL (73.0-96.2); MONOCYTES # (AUTO) 0.7 K/uL (0.1-1.30); MONOCYTES % (AUTO) 6.7 % (0.0-11.0); NEUTROPHILS # (AUTO) 9.2 K/uL (1.8-8.9); NEUTROPHILS % (AUTO) 85.6 % (38.5-71.5); PLATELET COUNT (AUTO) 177 K/uL (152-348); RED CELL DISTRIBUTION WIDTH 16.3 % (12.1-16.2); WHITE BLOOD COUNT (AUTO) 10.8 K/uL (3.6-10.2)
[2023-10-04 05:09] LABS: ALANINE AMINOTRANSFERASE 98 U/L (16-63); ALKALINE PHOSPHATASE 636 U/L (50-136); ASPARTATE AMINOTRANSFERASE 254 U/L (15-37); BILIRUBIN,TOTAL 1.3 mg/dL (0.2-1.0); CALCIUM 8.7 mg/dL (8.5-10.1); CARBON DIOXIDE 27 mmol/L (21-32); CHLORIDE 101 mmol/L (98-107); CREATININE 3.4 mg/dL (0.6-1.3); GLUCOSE 263 mg/dL (74-106); MAGNESIUM 1.9 mg/dL (1.8-2.4); PHOSPHOROUS 3.1 mg/dL (2.5-4.9); POTASSIUM 3.7 mmol/L (3.5-5.1); SODIUM SERUM 138 mmol/L (136-145); UREA NITROGEN, BLOOD 40 mg/dL (7-18)
[2023-10-04 05:12] LABS: DIFFERENTIAL COMMENT 1
[2023-10-04 05:15] LABS: ALBUMIN 1.4 g/dL (3.4-5.0)
[2023-10-04] MEDS: MIDODRINE HCL 5 MG TABLET PO SCH ×3 (05:16→21:16)
[2023-10-04] MEDS: LEVOTHYROXINE SODIUM 50 MCG TABLET PO SCH (05:16)
[2023-10-04] MEDS: PANTOPRAZOLE SODIUM 40 MG TABLET.DR PO SCH (05:16)
[2023-10-04] MEDS: NOREPINEPHRINE BITARTRATE 8 MG in IV NORMAL SALINE 242 ML IV PRN ×2 (05:17→22:09)
[2023-10-04] MEDS: ACETAMINOPHEN 325 MG TABLET PO PRN ×2 (05:54→16:40)
[2023-10-04 06:22] LABS: ABG BASE EXCESS 0.8 mmol/L; ABG HCO3 24.3 mmol/L; ABG PCO2 35.1 mmHg (35.0-45.0); ABG PH 7.459 (7.350-7.450); ABG PO2 84.9 mmHg (75.0-100.0); ABG SITE LEFT FEMORAL; ABG TOTAL HEMOGLOBIN 11.7 G/dL (13.5-18.0); COHb 0.9 % (0.5-1.5); MetHb 0.3 % (0.0-1.5); O2Hb 94.4 % (94.0-97.0); VENT MODE VENT - A/C; VT, ABG 360 mL
[2023-10-04] MEDS: CLOPIDOGREL 75 MG TABLET PO SCH (08:03)
[2023-10-04] MEDS: FOLIC ACID 1 MG TABLET PO SCH (08:04)
[2023-10-04] MEDS: NEPRO 1000 ML NG PRN (08:06)
[2023-10-04] MEDS: MEROPENEM 500 MG in IV NORMAL SALINE 50 ML IV SCH ×2 (09:32→21:15)
[2023-10-04] MEDS ORDERED: IV NORMAL SALINE 500 ML IV ONE (09:45)
[2023-10-04] MEDS ORDERED: VANCOMYCIN IV 500 MG in IV DEXTROSE 5% 100 ML IV PRN (11:45)
[2023-10-04] MEDS: ATORVASTATIN 40 MG TABLET PO SCH (21:16)
[2023-10-04] MEDS: PRAMIPEXOLE 0.25 MG TABLET PO SCH (21:17)
[2023-10-04] MEDS ORDERED: VANCOMYCIN IV 1,000 MG in IV DEXTROSE 5% 250 ML IV ONE (22:00)
[2023-10-05] VITALS (88 sets, daily range): BP systolic 35–155; BP diastolic 23–76; TEMP 97.5–100.2; O2SAT 96–100
[2023-10-05] MEDS: PROPOFOL 100 ML IV PRN ×2 (01:18→18:49)
[2023-10-05 04:47] LABS: BASOPHILS # (AUTO) 0.1 K/UL (0.0-0.2); EOSINOPHILS # (AUTO) 0.6 K/uL (0.0-0.7); EOSINOPHILS % (AUTO) 5.5 % (0.0-7.0); HEMATOCRIT 39.6 % (36.7-47.1); HEMOGLOBIN 13.1 g/dL (12.5-16.3); LYMPHOCYTES # (AUTO) 0.6 K/uL (0.8-4.8); LYMPHOCYTES % (AUTO) 5.3 % (20.5-51.5); MEAN CORPUSCULAR HEMOGLOBIN 30.9 uug (23.8-33.4); MEAN CORPUSCULAR HGB CONC 33 g/dL (32.5-36.3); MEAN CORPUSCULAR VOLUME 93.4 fL (73.0-96.2); MONOCYTES # (AUTO) 0.7 K/uL (0.1-1.30); MONOCYTES % (AUTO) 6.6 % (0.0-11.0); NEUTROPHILS # (AUTO) 8.6 K/uL (1.8-8.9); NEUTROPHILS % (AUTO) 81.6 % (38.5-71.5); PLATELET COUNT (AUTO) 250 K/uL (152-348); RED BLOOD CELL COUNT(AUTO) 4.23 MIL/uL (4.06-5.63); RED CELL DISTRIBUTION WIDTH 16.6 % (12.1-16.2); WHITE BLOOD COUNT (AUTO) 10.5 K/uL (3.6-10.2)
[2023-10-05 04:48] LABS: DIFFERENTIAL COMMENT 1
[2023-10-05 05:04] LABS: CALCIUM 9.4 mg/dL (8.5-10.1); CARBON DIOXIDE 27 mmol/L (21-32); CHLORIDE 100 mmol/L (98-107); CREATININE 4.5 mg/dL (0.6-1.3); GLUCOSE 313 mg/dL (74-106); MAGNESIUM 2.2 mg/dL (1.8-2.4); PHOSPHOROUS 4.6 mg/dL (2.5-4.9); POTASSIUM 4.3 mmol/L (3.5-5.1); SODIUM SERUM 138 mmol/L (136-145); UREA NITROGEN, BLOOD 61 mg/dL (7-18)
[2023-10-05 05:07] LABS: VANCOMYCIN,RANDOM < 0.8 ug/mL (20.0-30.0)
[2023-10-05 05:24] LABS: C-REACTIVE PROTEIN 27.2 mg/dL (0.0-0.9)
[2023-10-05] MEDS: LEVOTHYROXINE SODIUM 50 MCG TABLET PO SCH (06:21)
[2023-10-05] MEDS: PANTOPRAZOLE SODIUM 40 MG TABLET.DR PO SCH (06:21)
[2023-10-05] MEDS: MIDODRINE HCL 5 MG TABLET PO SCH ×3 (06:22→20:43)
[2023-10-05 07:48] LABS: ABG BASE EXCESS 1.9 mmol/L; ABG HCO3 25.9 mmol/L; ABG PCO2 38.6 mmHg (35.0-45.0); ABG PH 7.445 (7.350-7.450); ABG PO2 99.5 mmHg (75.0-100.0); ABG SITE LEFT BRACHIAL; ABG TOTAL HEMOGLOBIN 12.9 G/dL (13.5-18.0); O2Hb 96.4 % (94.0-97.0); VENT MODE VENT - A/C; VT, ABG 360 mL
[2023-10-05] MEDS: NOREPINEPHRINE BITARTRATE 8 MG in IV NORMAL SALINE 242 ML IV PRN ×3 (08:05→22:38)
[2023-10-05] MEDS: FOLIC ACID 1 MG TABLET PO SCH (08:22)
[2023-10-05] MEDS: CLOPIDOGREL 75 MG TABLET PO SCH (08:22)
[2023-10-05] MEDS: ACETAMINOPHEN 325 MG TABLET PO PRN (08:23)
[2023-10-05] MEDS: MEROPENEM 500 MG in IV NORMAL SALINE 50 ML IV SCH ×2 (08:23→20:41)
[2023-10-05] MEDS ORDERED: VANCOMYCIN IV 1,000 MG in IV DEXTROSE 5% 250 ML IV ONE (11:00)
[2023-10-05] MEDS ORDERED: DEXTROSE 50% 50 ML DISP.SYRIN IV PRN (11:45)
[2023-10-05] MEDS: BLOOD SUGAR DIAGNOSTIC 1 EACH STRIP VI SCH ×2 (12:49→18:20)
[2023-10-05] MEDS: INSULIN REGULAR, HUMAN 300 UNIT/3 ML VIAL SQ PRN ×2 (12:53→18:23)
[2023-10-05] MEDS: NEPRO 1000 ML NG PRN (15:06)
[2023-10-05] MEDS ORDERED: VANCOMYCIN IV 500 MG in IV DEXTROSE 5% 100 ML IV ONE (20:00)
[2023-10-05] MEDS: PRAMIPEXOLE 0.25 MG TABLET PO SCH (20:42)
[2023-10-05] MEDS: ATORVASTATIN 40 MG TABLET PO SCH (20:42)
[2023-10-06] VITALS (85 sets, daily range): BP systolic 74–137; BP diastolic 39–62; TEMP 97–99.9; O2SAT 98–100
[2023-10-06] MEDS: INSULIN REGULAR, HUMAN 300 UNIT/3 ML VIAL SQ PRN ×3 (00:01→18:00)
[2023-10-06] MEDS: BLOOD SUGAR DIAGNOSTIC 1 EACH STRIP VI SCH ×4 (00:04→17:59)
[2023-10-06 04:53] LABS: BASOPHILS # (AUTO) 0.1 K/UL (0.0-0.2); BASOPHILS % (AUTO) 1.2 % (0.0-2.0); DIFFERENTIAL COMMENT 0; EOSINOPHILS # (AUTO) 0.8 K/uL (0.0-0.7); EOSINOPHILS % (AUTO) 7.7 % (0.0-7.0); HEMATOCRIT 31.9 % (36.7-47.1); HEMOGLOBIN 10.7 g/dL (12.5-16.3); LYMPHOCYTES # (AUTO) 0.4 K/uL (0.8-4.8); LYMPHOCYTES % (AUTO) 3.6 % (20.5-51.5); MEAN CORPUSCULAR HGB CONC 33 g/dL (32.5-36.3); MEAN CORPUSCULAR VOLUME 92.8 fL (73.0-96.2); MONOCYTES # (AUTO) 0.7 K/uL (0.1-1.30); MONOCYTES % (AUTO) 6.5 % (0.0-11.0); NEUTROPHILS # (AUTO) 8.4 K/uL (1.8-8.9); PLATELET COUNT (AUTO) 247 K/uL (152-348); RED BLOOD CELL COUNT(AUTO) 3.44 MIL/uL (4.06-5.63); RED CELL DISTRIBUTION WIDTH 16.2 % (12.1-16.2); WHITE BLOOD COUNT (AUTO) 10.4 K/uL (3.6-10.2)
[2023-10-06 05:55] LABS: CARBON DIOXIDE 27 mmol/L (21-32); CHLORIDE 103 mmol/L (98-107); CREATININE 3.6 mg/dL (0.6-1.3); GLUCOSE 209 mg/dL (74-106); MAGNESIUM 2.3 mg/dL (1.8-2.4); PHOSPHOROUS 3.4 mg/dL (2.5-4.9); POTASSIUM 4.5 mmol/L (3.5-5.1); SODIUM SERUM 139 mmol/L (136-145); UREA NITROGEN, BLOOD 44 mg/dL (7-18)
[2023-10-06] MEDS: LEVOTHYROXINE SODIUM 50 MCG TABLET PO SCH (06:22)
[2023-10-06] MEDS: PANTOPRAZOLE SODIUM 40 MG TABLET.DR PO SCH (06:22)
[2023-10-06] MEDS: MIDODRINE HCL 5 MG TABLET PO SCH ×3 (06:23→21:11)
[2023-10-06 06:26] LABS: ABG BASE EXCESS 2.7 mmol/L; ABG PCO2 35.9 mmHg (35.0-45.0); ABG PH 7.478 (7.350-7.450); ABG PO2 103.4 mmHg (75.0-100.0); ABG SITE LEFT BRACHIAL; ABG TOTAL HEMOGLOBIN 12.8 G/dL (13.5-18.0); COHb 0.6 % (0.5-1.5); O2Hb 97.1 % (94.0-97.0); VENT MODE VENT - A/C; VT, ABG 360 mL
[2023-10-06] MEDS: FOLIC ACID 1 MG TABLET PO SCH (08:25)
[2023-10-06] MEDS: CLOPIDOGREL 75 MG TABLET PO SCH (08:25)
[2023-10-06] MEDS: MEROPENEM 500 MG in IV NORMAL SALINE 50 ML IV SCH ×2 (08:26→21:09)
[2023-10-06] MEDS: PROPOFOL 100 ML IV PRN ×2 (11:22→18:11)
[2023-10-06] MEDS: NOREPINEPHRINE BITARTRATE 8 MG in IV NORMAL SALINE 242 ML IV PRN (19:36)
[2023-10-06] MEDS: ATORVASTATIN 40 MG TABLET PO SCH (21:09)
[2023-10-06] MEDS: PRAMIPEXOLE 0.25 MG TABLET PO SCH (21:09)
[2023-10-06] MEDS ORDERED: VANCOMYCIN IV 500 MG in IV DEXTROSE 5% 100 ML IV SCH (23:00)
[2023-10-07] VITALS (69 sets, daily range): BP systolic 72–143; BP diastolic 40–67; TEMP 97.7–100.3; O2SAT 99–100
[2023-10-07] MEDS: INSULIN REGULAR, HUMAN 300 UNIT/3 ML VIAL SQ PRN ×4 (00:31→18:30)
[2023-10-07] MEDS: BLOOD SUGAR DIAGNOSTIC 1 EACH STRIP VI SCH ×4 (00:36→18:29)
[2023-10-07] MEDS: NEPRO 1000 ML NG PRN (00:44)
[2023-10-07] MEDS: PROPOFOL 100 ML IV PRN ×2 (02:47→12:15)
[2023-10-07 04:47] LABS: BASOPHILS # (AUTO) 0.1 K/UL (0.0-0.2); BASOPHILS % (AUTO) 1.5 % (0.0-2.0); EOSINOPHILS # (AUTO) 0.8 K/uL (0.0-0.7); EOSINOPHILS % (AUTO) 8.7 % (0.0-7.0); HEMATOCRIT 33.4 % (36.7-47.1); HEMOGLOBIN 11.1 g/dL (12.5-16.3); LYMPHOCYTES # (AUTO) 0.5 K/uL (0.8-4.8); LYMPHOCYTES % (AUTO) 5.5 % (20.5-51.5); MEAN CORPUSCULAR HGB CONC 33 g/dL (32.5-36.3); MONOCYTES # (AUTO) 0.4 K/uL (0.1-1.30); NEUTROPHILS % (AUTO) 79.3 % (38.5-71.5); PLATELET COUNT (AUTO) 289 K/uL (152-348); RED BLOOD CELL COUNT(AUTO) 3.59 MIL/uL (4.06-5.63); RED CELL DISTRIBUTION WIDTH 16.5 % (12.1-16.2); WHITE BLOOD COUNT (AUTO) 8.8 K/uL (3.6-10.2)
[2023-10-07 04:49] LABS: DIFFERENTIAL COMMENT 1
[2023-10-07 05:03] LABS: CALCIUM 8.5 mg/dL (8.5-10.1); CARBON DIOXIDE 30 mmol/L (21-32); CHLORIDE 100 mmol/L (98-107); CREATININE 2.9 mg/dL (0.6-1.3); GLUCOSE 224 mg/dL (74-106); MAGNESIUM 2.1 mg/dL (1.8-2.4); PHOSPHOROUS 3.2 mg/dL (2.5-4.9); POTASSIUM 3.2 mmol/L (3.5-5.1); SODIUM SERUM 138 mmol/L (136-145); TRIGLYCERIDES 132 MG/DL (30-150); UREA NITROGEN, BLOOD 34 mg/dL (7-18)
[2023-10-07] MEDS: LEVOTHYROXINE SODIUM 50 MCG TABLET PO SCH (06:03)
[2023-10-07] MEDS: PANTOPRAZOLE SODIUM 40 MG TABLET.DR PO SCH (06:03)
[2023-10-07] MEDS: MIDODRINE HCL 5 MG TABLET PO SCH ×3 (06:04→21:39)
[2023-10-07] MEDS: CLOPIDOGREL 75 MG TABLET PO SCH (08:58)
[2023-10-07] MEDS: MEROPENEM 500 MG in IV NORMAL SALINE 50 ML IV SCH ×2 (08:58→21:37)
[2023-10-07] MEDS: FOLIC ACID 1 MG TABLET PO SCH (08:58)
[2023-10-07 09:18] LABS: ABG BASE EXCESS 3.9 mmol/L; ABG HCO3 28.1 mmol/L; ABG PH 7.454 (7.350-7.450); ABG PO2 104.8 mmHg (75.0-100.0); ABG SITE LEFT BRACHIAL; ABG TOTAL HEMOGLOBIN 13.8 G/dL (13.5-18.0); COHb 1.1 % (0.5-1.5); O2Hb 96.7 % (94.0-97.0); VENT MODE VENT - A/C; VT, ABG 360 mL
[2023-10-07] MEDS: NOREPINEPHRINE BITARTRATE 8 MG in IV NORMAL SALINE 242 ML IV PRN (10:34)
[2023-10-07] MEDS ORDERED: REMEDY ESSENTIAL ZINC PASTE 113 GM TOP PRN (14:30)
[2023-10-07] MEDS: ACETAMINOPHEN 325 MG TABLET PO PRN (14:45)
[2023-10-07] MEDS: ATORVASTATIN 40 MG TABLET PO SCH (21:37)
[2023-10-07] MEDS: PRAMIPEXOLE 0.25 MG TABLET PO SCH (21:37)
[2023-10-08] VITALS (58 sets, daily range): BP systolic 49–136; BP diastolic 26–70; TEMP 98.8–99.4; O2SAT 92–100
[2023-10-08] MEDS: BLOOD SUGAR DIAGNOSTIC 1 EACH STRIP VI SCH ×3 (00:08→13:00)
[2023-10-08] MEDS: INSULIN REGULAR, HUMAN 300 UNIT/3 ML VIAL SQ PRN ×2 (00:10→13:27)
[2023-10-08] MEDS: PROPOFOL 100 ML IV PRN ×2 (00:17→09:12)
[2023-10-08] MEDS: NOREPINEPHRINE BITARTRATE 8 MG in IV NORMAL SALINE 242 ML IV PRN ×2 (03:44→13:57)
[2023-10-08 04:51] LABS: BASOPHILS # (AUTO) 0.1 K/UL (0.0-0.2); BASOPHILS % (AUTO) 1.4 % (0.0-2.0); EOSINOPHILS # (AUTO) 0.8 K/uL (0.0-0.7); EOSINOPHILS % (AUTO) 9.1 % (0.0-7.0); HEMATOCRIT 33.7 % (36.7-47.1); HEMOGLOBIN 11.3 g/dL (12.5-16.3); LYMPHOCYTES # (AUTO) 0.6 K/uL (0.8-4.8); LYMPHOCYTES % (AUTO) 6.8 % (20.5-51.5); MEAN CORPUSCULAR HGB CONC 34 g/dL (32.5-36.3); MEAN CORPUSCULAR VOLUME 92.6 fL (73.0-96.2); MONOCYTES # (AUTO) 0.7 K/uL (0.1-1.30); MONOCYTES % (AUTO) 8.2 % (0.0-11.0); NEUTROPHILS # (AUTO) 6.3 K/uL (1.8-8.9); NEUTROPHILS % (AUTO) 74.5 % (38.5-71.5); PLATELET COUNT (AUTO) 322 K/uL (152-348); RED BLOOD CELL COUNT(AUTO) 3.64 MIL/uL (4.06-5.63); RED CELL DISTRIBUTION WIDTH 16.4 % (12.1-16.2); WHITE BLOOD COUNT (AUTO) 8.5 K/uL (3.6-10.2)
[2023-10-08 04:52] LABS: DIFFERENTIAL COMMENT 1
[2023-10-08 05:06] LABS: CALCIUM 8.6 mg/dL (8.5-10.1); CARBON DIOXIDE 30 mmol/L (21-32); CHLORIDE 101 mmol/L (98-107); CREATININE 4.1 mg/dL (0.6-1.3); GLUCOSE 154 mg/dL (74-106); MAGNESIUM 2.4 mg/dL (1.8-2.4); PHOSPHOROUS 4.2 mg/dL (2.5-4.9); POTASSIUM 3.8 mmol/L (3.5-5.1); SODIUM SERUM 140 mmol/L (136-145); UREA NITROGEN, BLOOD 54 mg/dL (7-18)
[2023-10-08] MEDS: PANTOPRAZOLE SODIUM 40 MG TABLET.DR PO SCH (06:19)
[2023-10-08] MEDS: LEVOTHYROXINE SODIUM 50 MCG TABLET PO SCH (06:19)
[2023-10-08] MEDS: MIDODRINE HCL 5 MG TABLET PO SCH ×2 (06:20→14:00)
[2023-10-08] MEDS: MEROPENEM 500 MG in IV NORMAL SALINE 50 ML IV SCH (08:24)
[2023-10-08] MEDS: FOLIC ACID 1 MG TABLET PO SCH (08:25)
[2023-10-08] MEDS: CLOPIDOGREL 75 MG TABLET PO SCH (08:25)
[2023-10-08] MEDS ORDERED: MORPHINE SULFATE 2 MG/1 ML DISP.SYRIN IV ONE (15:30)
[2023-10-08] MEDS ORDERED: LORAZEPAM 2 MG/1 ML VIAL IV ONE (15:38)
[2023-10-08] MEDS ORDERED: MORPHINE SULFATE 2 MG/1 ML DISP.SYRIN IV PRN (15:45)
[2023-10-28] MEDS ORDERED: ETOMIDATE 20 MG/10 ML VIAL ONE (08:00)
[2023-10-28] MEDS ORDERED: ROCURONIUM BROMIDE 50 MG/5 ML VIAL ONE ×2 (08:00)
== END 2023-10-08 17:00 | DRG 870 ==
LOC: ER 04:13 → CCU 06:02
PROVIDERS: ADMIT Nurse Practitioner Acute Care; ATTEND Nurse Practitioner Acute Care
PROC: 02HV33Z Insertion of Infusion Device into Superior Vena Cava, Percutaneous Approach (ICD-10-PCS; principal; 2023-09-22)
PROC: 0W9B3ZZ Drainage of Left Pleural Cavity, Percutaneous Approach (ICD-10-PCS; 2023-09-22)
PROC: 0W993ZZ Drainage of Right Pleural Cavity, Percutaneous Approach (ICD-10-PCS; 2023-09-22)
PROC: 5A1D70Z Performance of Urinary Filtration, Intermittent, Less than 6 Hours Per Day (ICD-10-PCS; 2023-09-24)
PROC: 0BH17EZ Insertion of Endotracheal Airway into Trachea, Via Natural or Artificial Opening (ICD-10-PCS; 2023-09-27)
PROC: 5A1955Z Respiratory Ventilation, Greater than 96 Consecutive Hours (ICD-10-PCS; 2023-09-27)
DX: A41.9 Sepsis, unspecified organism (principal); N18.6 End stage renal disease; R65.21 Severe sepsis with septic shock; J96.02 Acute respiratory failure with hypercapnia; J96.01 Acute respiratory failure with hypoxia; J15.69 Pneumonia due to other Gram-negative bacteria; I21.A1 Myocardial infarction type 2; I50.23 Acute on chronic systolic (congestive) heart failure; E43 Unspecified severe protein-calorie malnutrition; G92.8 Other toxic encephalopathy; Z66 Do not resuscitate; Z51.5 Encounter for palliative care; J91.8 Pleural effusion in other conditions classified elsewhere; I48.20 Chronic atrial fibrillation, unspecified; J98.11 Atelectasis; I13.2 Hypertensive heart and chronic kidney disease with heart failure and with stage 5 chronic kidney disease, or end stage renal disease; E87.4 Mixed disorder of acid-base balance; I95.9 Hypotension, unspecified; S30.0XXA Contusion of lower back and pelvis, initial encounter; X58.XXXA Exposure to other specified factors, initial encounter; Y92.89 Other specified places as the place of occurrence of the external cause; Z95.1 Presence of aortocoronary bypass graft; E78.5 Hyperlipidemia, unspecified; I25.5 Ischemic cardiomyopathy; I08.1 Rheumatic disorders of both mitral and tricuspid valves; Z20.822 Contact with and (suspected) exposure to COVID-19; K21.9 Gastro-esophageal reflux disease without esophagitis; E03.9 Hypothyroidism, unspecified; I45.10 Unspecified right bundle-branch block; M89.8X9 Other specified disorders of bone, unspecified site; R13.10 Dysphagia, unspecified; K82.8 Other specified diseases of gallbladder; I27.29 Other secondary pulmonary hypertension; I25.10 Atherosclerotic heart disease of native coronary artery without angina pectoris; Z79.82 Long term (current) use of aspirin; Z79.01 Long term (current) use of anticoagulants; Z87.01 Personal history of pneumonia (recurrent); Z99.2 Dependence on renal dialysis; E11.22 Type 2 diabetes mellitus with diabetic chronic kidney disease; E83.42 Hypomagnesemia; E87.6 Hypokalemia; D64.9 Anemia, unspecified; E88.09 Other disorders of plasma-protein metabolism, not elsewhere classified
CPT/HCPCS: 32555; 36415; 36556; 36600; 70450; 71045; 71250; 71275; 74018; 76604; 76705; 82803; 83605; 83615; 83735; 83986; 84100; 84155; 84443; 84478; 84484; 85025; 85610; 85730; 86140; 86704; 86706; 86708; 86803; 87040; 87340; 87350; 90937; 93005; 93307; 94002; 94003; 94640; 94760; 99082-TC; A4606; A4663; C9113; G0378; G0480; J0610; J0692; J1644; J1815; J1956; J2060; J2185; J2270; J3370; J3475; J3490; J7040; J7050; P9047; Q9967